=== PATIENT | female | born 2000 | race Caucasian/White ===

== ENCOUNTER 2024-03-23 09:37 | Emergency (ER) | payer MEDICAID ==
[~2024-03-23] VITALS: Ht 157.5 cm; Wt 65.6 kg
[2024-03-23 11:07] LABS: BASOPHILS % (AUTO) 0.4 % (0-1); EOSINOPHILS % (AUTO) 0.9 % (0-6); HEMATOCRIT 41.6 % (35.0-45.0); HEMOGLOBIN 13.9 g/dl (12.0-16.0); LYMPHOCYTES # (AUTO) 1.4 X10'3 (1.1-4.8); LYMPHOCYTES % (AUTO) 28.2 % (21-51); MEAN CORPUSCULAR HEMOGLOBIN 30.9 PG (27.0-31.0); MEAN CORPUSCULAR HGB CONC 33.4 g/dL (33.0-36.5); MEAN CORPUSCULAR VOLUME 92.7 FL (78-98); MEAN PLATELET VOLUME 8.3 FL (7.4-10.4); MONOCYTES # (AUTO) 0.4 X10'3 (0-0.9); MONOCYTES % (AUTO) 7.3 % (2-12); NEUTROPHILS # (AUTO) 3.2 X10'3 (1.8-7.7); NEUTROPHILS % (AUTO) 63.2 % (42-75); PLATELET COUNT 237 X10'3 (140-440); RED BLOOD COUNT 4.49 X10'6 (4.20-5.60); RED CELL DISTRIBUTION WIDTH 13.7 % (11.5-14.5); WHITE BLOOD COUNT 5.1 X10'3 (4.5-11.0)
[2024-03-23 11:15] LABS: ALANINE AMINOTRANSFERASE 36 U/L (12-78); ALBUMIN 3.8 G/DL (3.4-5.0); ALBUMIN/GLOBULIN RATIO 1.3 (1.1-1.5); ALKALINE PHOSPHATASE 59 IU/L (46-116); ANION GAP 6 (8-16); ASPARTATE AMINO TRANSFERASE 23 U/L (10-37); BILIRUBIN,TOTAL 1.4 MG/DL (0.1-1.0); BLOOD UREA NITROGEN 9 MG/DL (7-18); BUN/CREATININE RATIO 12.3 (10.0-20.0); CALCIUM 8.8 MG/DL (8.5-10.1); CHLORIDE 104 MMOL/L (99-107); CREATININE 0.73 MG/DL (0.40-0.90); GLUCOSE 90 MG/DL (70-104); POTASSIUM 4.4 MMOL/L (3.5-5.1); SODIUM 138 MMOL/L (135-145); TOTAL CARBON DIOXIDE 28.3 MMOL/L (24-32); TOTAL PROTEIN 6.8 G/DL (6.4-8.2); eCRCL 96 ML/MIN; eGFR > 90 ML/MIN
[2024-03-23 11:51] VITALS: BP 127/83; PULSE 90; RESP 15; TEMP 98.2; O2SAT 99
== END 2024-03-23 11:52 | disposition home or self-care (01) ==
LOC: ER 09:38
DX: Z02.89 Encounter for other administrative examinations (principal); F10.10 Alcohol abuse, uncomplicated
CPT/HCPCS: 36415; 80053; 80320; 85025; 99283

== ENCOUNTER 2024-05-08 09:25 | Emergency (ER) | payer MEDICAID ==
[~2024-05-08] VITALS: Ht 167.6 cm; Wt 69.2 kg
[2024-05-08] MEDS: dexamethasone sod phosphate 10mg/ml inj PO STA (10:35)
[2024-05-08] MEDS: ketorolac trometh 30MG/ML vial 30 MG/ML VIAL IM ONE (10:36)
[2024-05-08] MEDS: cyclobenzaprine 10mg tablet PO ONE (10:36)
[2024-05-08] MEDS: LIDOcaine 5% patch TP SCH (10:52)
[2024-05-08] MEDS ORDERED: LIDO700A32 TOP (11:40)
[2024-05-08] MEDS ORDERED: CYCL-1 PO (11:40)
[2024-05-08 11:50] VITALS: BP 118/78; PULSE 78; RESP 18; TEMP 98.1; O2SAT 99
== END 2024-05-08 11:51 | disposition home or self-care (01) ==
LOC: ER 09:26
DX: M54.2 Cervicalgia (principal)
CPT/HCPCS: 71045; 72040; 96372; 99284; J1100; J1885

== ENCOUNTER 2024-05-09 12:50 | Emergency (ER) | payer MEDICAID ==
[~2024-05-09] VITALS: Ht 157.5 cm; Wt 69.9 kg
[~2024-05-09 12:50] MED LIST: CYCL-1 PO; LIDO700A32 TOP
[2024-05-09 12:54] VITALS: BP 152/86; PULSE 86; RESP 18; TEMP 98.6; O2SAT 99
[2024-05-09] MEDS: diphenhydrAMINE 25mg capsule PO STA (14:35)
[2024-05-09] MEDS: triamcinolone acetonide 40mg/ml inj IM STA (14:35)
== END 2024-05-09 14:48 | disposition home or self-care (01) ==
LOC: ER 12:51
DX: T78.49XA Other allergy, initial encounter (principal); Z79.899 Other long term (current) drug therapy; X58.XXXA Exposure to other specified factors, initial encounter
CPT/HCPCS: 96372; 99283; J3301; Q0163

== ENCOUNTER 2025-01-13 13:57 | Emergency (ER) | payer MEDICAID ==
[~2025-01-13] VITALS: Ht 157.5 cm; Wt 80.5 kg
[2025-01-13 13:59] VITALS: BP 120/70; PULSE 98; RESP 16; O2SAT 99
[2025-01-13] MEDS ORDERED: AMOX-580 PO (15:44)
[2025-01-13] MEDS ORDERED: HYDR-3965 PO (15:44)
--- NOTE | 2025-01-13 15:48 | Physician Documentation ---
History of Present Illness ~ Chief Complaint: Sore Throat Stated Complaint: SORE THROAT Time Seen by MD: 14:58 Primary Medical Doctor: AMARILIS BUSTILLOS 24-year-old female reports a chief complaint of sore throat. Patient states that her throat was with a progressively getting sore with redness for the past five days. Denies fevers or chills. Denies cough. Denies nausea vomiting diarrhea. No other complaints at this time Medication Reconciliation Allergies: Coded Allergies: No Known Allergies (Unverified , 05/09/24) Scheduled Amox Tr/Potassium Clavulanate 875/125 MG (Augmentin 875/125 MG), 1 TAB PO Q12H Cyclobenzaprine* (Cyclobenzaprine*), 1 TAB PO HS Lidocaine (Lidoderm), 1 PATCH TOP DAILY Scheduled PRN Hydrocodone Bit/Acetaminophen 5/325 MG ([place] 5/325 MG), 1 TAB PO TID PRN PRN for pain Past Medical History Past Medical History: No Pertinent History Past Surgical History: noncontributory Smoking Status: Never smoker Occupation: student Physical Exam Vital Signs: Temperature: 98.3, Source: Oral, Heart Rate: 98, Respiratory Rate: 16, BP: 120/70, Pulse Oximetry: 99, Weight: 80.500 Oxygen Flow Rate: 0 Physical Exam General: Well developed, well nourished, no distress. HEENT: Bilateral tonsils positive for 2+ edema with the exudates. Posterior pharynx is positive for erythema. Uvula is midline negative for edema. Positive LAD Neck: Full range of motion, supple. Respiratory: Lungs clear, no respiratory distress. Chest: No accessory muscle use, nontender. Cardiovascular: Regular rate and rhythm. Gastrointestinal: Soft, nontender, nondistended. Bowel sounds present. Extremities: Normal range of motion, nontender, normal capillary refill, no deformity. Back: No midline tenderness, no CVA tenderness. Neurologic: Oriented x4. Distal gross motor and sensory intact all four extremities. Moves all 4 extremities spontaneously. Psychiatric: Normal mood and affect. Skin: Normal color, warm and dry. No edema, no ecchymosis Progress Results/Orders Results/Orders Vital Signs 01/13/25 13:59 Temp 98.3 Pulse 98 Resp 16 B/P (MAP) 120/70 Pulse Ox 99 O2 Flow Rate 0 Medical Decision Making Additional info obtained from: old records Findings After detailed discussion and joint medical decision-making, diagnostic and imaging results were discussed with the patient. At this time patient we will be given medication for tonsillitis he will be discharged. Patient is advised to follow up with primary care. ER precautions were given. Patient is stable upon discharge. All patient questions answered to satisfaction Ear Diff. Dx: Considerations: Include: Other (Tonsillitis, strep pharyngitis, dip three, URI) Departure Disposition: HOME / SELF CARE / HOMELESS Impression: Primary Impression: Pharyngitis Condition: Stable Discharge Instructions: Sore Throat, Tonsillitis, Strep Throat, Adult Referrals: NO PRIMARY CARE PROVIDER (PCP) Prescriptions Amox Tr/Potassium Clavulanate 875/125 MG (Augmentin 875/125 MG) 875 Mg-125 Mg Tablet 1 TAB PO Q12H for 10 Days, #20 TAB Prov: FREYA BROWN 01/13/25 Hydrocodone Bit/Acetaminophen 5/325 MG ([place] 5/325 MG) 5 Mg/325 Mg Tablet 1 TAB PO TID PRN PRN for pain for 5 Days, #15 TAB Prov: FREYA BROWN 01/13/25 Education Educated: Patient Educated regarding: diagnosis, treatment Signature Scribe Signature: none use Attestation: Scribed for Freya Brown by Freya SWIFT . 01/13/25 15:45 FREYA BROWN January 13, 2025 15:48
[2025-01-13] MEDS ORDERED: AMOX-318 PO (16:25)
[2025-01-13 16:27] VITALS: TEMP 98.3
== END 2025-01-13 16:29 | disposition home or self-care (01) ==
LOC: ER 13:58
DX: J02.9 Acute pharyngitis, unspecified (principal)
CPT/HCPCS: 99283